=== PATIENT | female | born 1985 | race Caucasian/White ===

== ENCOUNTER → 2019-01-10 16:30 | Outpatient (CLI) | payer OTHER, SELFPAY ==
[2019-01-10 17:08] LABS: Absolute Lymphocyte Count 2.72 X10^3/uL (0.83-4.51); Absolute Neutrophil Count 1.8 X10^3/uL (2.0-7.7); Eosinophil# 0.01 X10^3/uL; Eosinophils% 0.2 % (0-5); Hematocrit 44.5 % (37-47); Hemoglobin 14.9 g/dL (12.0-15.0); Lymphocyte # 2.72 X10^3/ul (4.0); Lymphocyte % 53.5 % (19-41); Mean Corp Hgb Conc 33.5 g/dL (32-36); Mean Corpuscular Hgb 33.8 pg (27.0-32.0); Mean Corpuscular Volume 100.9 fL (81-99); Mean Platelet Vol. 9.4 fl (6.2-12.0); Monocyte# 0.39 X10^3/uL; Monocyte% 7.7 % (0-10); NRBC Flagged by Analyzer 0 % (0-5); Neutrophil # 1.81 X10^3/uL (2.7-7.7); Neutrophil % 35.6 % (47-70); Platelet Count 282 K/mm3 (150-450); RBC Distribution Width CV 13.7 % (11.6-14.6); RBC Distribution Width SD 51.3 fl (35.1-43.9); Red Blood Count 4.41 M/mm3 (4.2-5.4); White Blood Count 5.1 K/mm3 (4.4-11.0)
[2019-01-10 17:12] LABS: Ammonia < 10.0 umol/L (11-32)
[2019-01-10 18:06] LABS: AST(SGOT) 17 U/L (15-37); Alanine Aminotransfer ALT/SGPT 20 U/L (13-56); Albumin, Serum 3.7 g/dL (3.2-5.0); Alkaline Phosphatase 44 U/L (45-117); Bilirubin, Direct 0.22 mg/dL (0.00-0.30); Globulin 3.7 g/dL (2.2-4.2); Protein, Total 7.4 g/dL (6.4-8.2)
[2019-01-10 18:24] LABS: Valproic Acid (Depakene) Level 34 ug/mL (50-100)
== END ==
PROVIDERS: Family Provider Family Medicine; PCP Family Medicine; Referring Provider Nurse Practitioner Family; Visit Provider Nurse Practitioner Family
DX: R56.9 Unspecified convulsions (principal)
CPT/HCPCS: 36415; 80076; 80164; 82140; 85025

== ENCOUNTER → 2022-11-11 | Outpatient (CLI) | payer SELFPAY, OTHER ==
--- NOTE | 2022-11-11 10:52 | ECHOD_ITS ---
Reason For Study: ABN EKG Procedure This was a 2D Doppler, Color Flow transthoracic echocardiogram. Technically difficult study due to patient becoming anxious. Definity deferred due to paitent agitation. Exam performed in department. Left Ventricle Normal LV size. Left ventricular systolic function is normal. The estimated ejection fraction is 60 %. Normal diastololic function. No regional wall motion abnormalities noted. Right Ventricle Normal RV size. Normal systolic function. Atria The left and right atria are normal. Mitral Valve The mitral valve is structurally normal. No prolapse or stenosis seen. Trivial mitral valve insufficiency. Tricuspid Valve Normal tricuspid valve. Mild (1+) tricuspid valve insufficiency. Right ventricular systolic pressure estimated to be 30 mmHg. Aortic Valve Trisinus/trileaflet aortic valve. Pulmonic Valve Normal pulmonic valve. Mild (1+) pulmonic valve insufficiency. Great Vessels Normal aortic root. Pericardium/Pleural No pericardial effusion. MMode/2D Measurements & Calculations LVIDd: 3.9 cm IVSd: 0.63 cm Ao root diam: 2.7 cm LVIDs: 2.8 cm LVPWd: 0.69 cm RVDd: 3.1 cm FS: 28.4 % LAV(MOD-bp): 31.9 ml LA A4 area: 12.3 cm2 LA dimension(2D): 2.9 cm LAV(MOD-sp2): 30.6 ml LAV(MOD-sp4): 26.2 ml RA A4 area: 14.2 cm2 TAPSE: 2.2 cm Time Measurements MV dec time: 0.21 sec Doppler Measurements & Calculations MV E max alec: 85.7 cm/sec Lat Peak E' Alec: 14.9 cm/sec Med Peak E' Alec: 12.8 cm/sec MV A max alec: 60.2 cm/sec E/E' lat: 5.8 E/E' med: 6.7 MV E/A: 1.4 MV V2 max: 95.1 cm/sec Ao V2 max: 118.3 cm/sec MV max P.6 mmHg MV dec slope: 407.2 cm/sec2 Ao max P.6 mmHg MV V2 mean: 30.5 cm/sec Ao V2 mean: 80.6 cm/sec MV mean P.74 mmHg Ao mean P.0 mmHg MV V2 VTI: 26.1 cm Ao V2 VTI: 30.4 cm AV (velocity ratio): 0.74 LV V1 max: 99.0 cm/sec PA V2 max: 88.5 cm/sec TR max alec: 260.5 cm/sec LV V1 max P.9 mmHg PA V2 mean: 59.5 cm/sec TR max P.1 mmHg LV V1 mean P.0 mmHg LV V1 mean: 65.0 cm/sec LV V1 VTI: 22.4 cm ECHO/Echo Complete Interpretation Summary The estimated ejection fraction is 60 %. Mild (1+) tricuspid valve insufficiency. Mild (1+) pulmonic valve insufficiency. Ordering Physician: Angle Moreno Referring Physician: Angle Moreno Performed By: Emerita Mi RCS
--- NOTE | 2022-11-12 12:26 | STRESSREP ---
Stress Test Report Date: 11/11/2022 Procedure: Exercise tolerance test Indications: Abnormal ECG Consent: Per the patient Procedure: The patient exercised on a Darrion protocol for 30 seconds achieving a peak heart rate of 89 bpm (48% predicted maximal heart rate) with a peak blood pressure 104/60 mmHg and a peak MET capacity of approximately 1.7 MET's. The baseline ECG demonstrated sinus bradycardia. The peak exercise ECG demonstrated no ischemic changes. There were no cardiac dysrhythmias pretest, during exercise, or recovery. The functional capacity was considered below average. The patient had no complaints of chest discomfort during exercise or recovery. The examination was discontinued secondary to patient unable to walk on treadmill. Impression: 1. Nondiagnostic stress test secondary to inability to walk on treadmill 2. Peak exercise ECG with no ischemic changes. Heart rate singh from resting 41 bpm to 89 bpm within 30 seconds. 3. There were no cardiac dysrhythmias during exercise or recovery This note was generated with [employer] software. It may contain incorrect words, spelling, and punctuation that were not noted in checking the note before signing.
== END | disposition home or self-care (01) ==
PROVIDERS: PCP Family Medicine; Referring Provider Internal Medicine Cardiovascular Disease; Visit Provider Internal Medicine Cardiovascular Disease
DX: R00.1 Bradycardia, unspecified (principal); R56.9 Unspecified convulsions; E03.9 Hypothyroidism, unspecified; Q90.9 Down syndrome, unspecified; R94.31 Abnormal electrocardiogram [ECG] [EKG]
CPT/HCPCS: 93017; 93306